=== PATIENT | female | born 1950 | race Caucasian/White ===

== ENCOUNTER 2024-05-27 08:46 | Emergency (ER) | payer MEDICARE, OTHER, SELFPAY ==
[2024-05-27 09:10] VITALS: BP 177/101; PULSE 86; RESP 18; TEMP 36.8; O2SAT 98
--- NOTE | 2024-05-27 09:48 | ED_ITS ---
HPI - URI/Sore Throat General Chief Complaint: Upper Respiratory Infection Stated Complaint: sinus infection Time Seen by Provider: 05/27/24 09:40 Source: patient, RN notes reviewed and old records reviewed Mode of arrival: ambulatory Limitations: no limitations History of Present Illness HPI Narrative: 73 year old female who presents to [facility] care with complaints of sinus congestion with drainage,cough, sinus pressure and frontal headache for the past 5 days. Patient reports that she has history of sinus problems and sinus infections, has been taking Ibuprofen and Agatha for her symptoms without improvement, Patient reports some nausea from sinus drainage. MD elicited complaint: cough, rhinorrhea, nasal congestion, sinus pain and other (headache frontal) Pertinent past history: sinusitis and seasonal allergies Onset (ago): day(s) (5) Pain scale (0-10): 5 Description of mucous: yellow Able to tolerate fluids by mouth: Yes Treatments prior to arrival: ibuprofen and other (Agatha, Robitussin cough medication) Related Data Home Medications Medication Instructions Recorded Confirmed levothyroxine 75 mcg tablet mcg 05/27/24 losartan 100 mg tablet mg 05/27/24 meloxicam 7.5 mg tablet mg 05/27/24 metoprolol succinate 100 mg mg PO 05/27/24 tablet,extended release 24 hr omeprazole 20 mg capsule,delayed mg 05/27/24 release Allergies Allergy/AdvReac Type Severity Reaction Status Date / Time Opioids - Morphine Analogues Allergy Unknown Verified 05/27/24 09:04 Penicillins Allergy Unknown Verified 05/27/24 09:04 Review of Systems Review of Systems: CONSTITUTIONAL: Denies malaise, chills, sweats, or fever. EYES: Denies visual changes, redness, or discharge. ENT: Reports rhinorrhea, congestion, sinus pain, no otalgia and no sore throat. CARDIOVASCULAR: Denies chest pain, palpitations, or edema. RESPIRATORY: Reports cough.? Denies dyspnea. GASTROINTESTINAL: Denies abdominal pain, states some nausea, no vomiting, diarrhea SKIN: Denies rash or itching. MUSCULOSKELETAL: Denies myalgia. NEUROLOGIC: Reports frontal headache. All systems reviewed & are unremarkable except as noted in HPI and below PMFSH Past Medical History Medical History (Updated 05/29/24 @ 13:45 by Annalisa Loya NP) GERD (gastroesophageal reflux disease) Hypertension Hypothyroidism Social History Social History (Updated 05/29/24 @ 13:46 by Annalisa Loya NP) Smoking status: Never smoker Alcohol intake: current Alcohol use details: rare social Substance use type: does not use Living arrangements: with family Gender identity (if verbalized by the patient): Female Comments At time of signature, agree with nursing past medical, surgical, social and family history. There is no relevant family history pertinent to the presenting complaint Exam Narrative: GENERAL: Well-appearing, well-nourished, and in no acute distress. HEAD: Normocephalic EYES: PERRLA, conjunctivae clear ENT: Nares clear, turbinates edematous and erythematous, light yellow discharge, sinus pressure and frontal headache,. Mucous membranes moist. TM pearly salazar with dull light reflex bilaterally; no tragal tenderness. Oropharynx erythematous without lesions. Tonsils not enlarged and without exudate, no drooling, no hoarseness, no trismus, uvula midline.post nasal drainage NECK: Supple. No lymphadenopathy CHEST: Clear to auscultation, breath sounds equal. No wheezing, rhonchi, rales, or stridor. No respiratory distress, speaks in full sentences.dry cough,SAO2 98% on room air HEART: Regular rate and rhythm. No murmur heard. SKIN: Warm, dry, no rash. NEURO: Alert and oriented x3. PSYCH: Normal mood and affect Course Course Emergency Course: Patient is aware of diagnosis, understands and agrees to treatment plan.? Anticipatory guidance given.? Patient agrees to follow-up as directed and is aware of reasons to seek care at the emergency department. Portions of this record may have been created with voice recognition software Level of Care: Express Care Visit Vital Signs Vital signs: Vital Signs Temperature 36.8 C 05/27/24 09:10 Pulse Rate 86 05/27/24 09:10 Respiratory Rate 18 05/27/24 09:10 Blood Pressure 177/101 H 05/27/24 09:10 Pulse Oximetry 98 05/27/24 09:10 Oxygen Delivery Room Air 05/27/24 09:10 Temperature 36.8 C 05/27/24 09:10 Pulse Rate 86 05/27/24 09:10 Respiratory Rate 18 05/27/24 09:10 Blood Pressure 177/101 H 05/27/24 09:10 Pulse Oximetry 98 05/27/24 09:10 Oxygen Delivery Room Air 05/27/24 09:10 Reviewed MDM - URI/Sore Throat MDM Narrative Medical decision making narrative: Differential diagnosis considered: Prieto virus, strep pharyngitis, allergic rhinitis, upper respiratory tract infection, sinusitis, rhinosinusitis, nasopharyngitis. viral pharyngitis, otitis media, otitis externa, pneumonia, bronchitis, viral cough syndrome, viral syndrome, and influenza.? Exam findings show no acute concerns or changes; patient is non-toxic appearing and is in no distress.? Patient is appropriate for outpatient treatment and follow-up. Differential Diagnosis Differential diagnosis: Likely upper respiratory infection, sinusitis, viral infection and other (cough) Medical Records Attestation: I reviewed the patient's medical records. Lab Data Attestation: I reviewed the patient's lab results. Critical Care Time Critical Care Time Critical Care Time: No Discharge Plan Discharge Clinical Impression: Bacterial sinusitis, Cough in adult Patient Disposition: Home, Self-Care Condition: Stable Instructions: Antibiotic Form, Sinusitis (ED), Acute Cough (ED) Additional Instructions: Increase fluids especially juices and water [id number] cough and cold medicine of your choice for your symptoms Zyrtec Claritin or Agatha daily and include Coricidin nasal decongestant Tylenol or ibuprofen for any fever pain Steroids as directed--take with food heat to the face 20-30 minutes 4-6 times a day for pain Salt water gargles, throat lozenges or throat sprays as desired Antibiotic as directed--finished the medication If your symptoms persist, change or worsen significantly before you can contact your personal physician then please, without delay, go to the emergency department for further evaluation. Follow-up with PCP in 7-10 days or sooner if needed Follow up with PCP soon in regards to your blood pressure which is elevated above threshold for referral. Blood pressure above 120/80 may indicate pre- hypertension. 177/101 Prescriptions: New azithromycin 250 mg tablet See Rx Instructions .ROUTE .COMPLEX Qty: 6 0RF Rx Instructions: For 250 mg dose pack: take 500 mg today (day 1), then 250 mg for 4 days (days 2-5) methylprednisolone [Medrol (Fazal)] 4 mg tablets,dose pack See Rx Instructions .ROUTE .COMPLEX Qty: 21 0RF Rx Instructions: orally per package directions No Action metoprolol succinate 100 mg tablet extended release 24 hr PO levothyroxine 75 mcg tablet meloxicam 7.5 mg tablet omeprazole 20 mg capsule,delayed release(DR/EC) losartan 100 mg tablet Follow-up/Referrals: Toño,MD Sharif [Primary Care Provider] - Time of Disposition: 09:58 Quality Crawford Coma Scale Eyes: Open Verbal: Oriented and Alert Motor: Follows Commands Anny Coma Total Score: 15
== END 2024-05-27 10:03 | disposition home or self-care (01) ==
PROVIDERS: Emergency Provider Registered Nurse; PCP Internal Medicine Infectious Disease
DX: J32.9 Chronic sinusitis, unspecified (principal); R05.9 Cough, unspecified; I10 Essential (primary) hypertension; E03.9 Hypothyroidism, unspecified; K21.9 Gastro-esophageal reflux disease without esophagitis
CPT/HCPCS: 99213; G0463